=== PATIENT | female | born 1955 | race Caucasian/White ===

== ENCOUNTER → 2016-08-15 | Outpatient (CLI) | payer OTHER, BC | END | disposition home or self-care (01) | LOC: C.PATHSPEC 16:56 | PROVIDERS: ATTEND Dermatology | DX: C44.719 Basal cell carcinoma of skin of left lower limb, including hip (principal) ==

== ENCOUNTER → 2017-01-24 | Outpatient (CLI) | payer OTHER ==
--- NOTE | 2017-01-24 14:55 | MAMMOGRAPHY REPORT ---
UNILATERAL RIGHT DIGITAL DIAGNOSTIC MAMMOGRAM TOMOSYNTHESIS AND TARGETED RIGHT ULTRASOUND: 01/24/2017 CLINICAL HISTORY: Callback from screening mammogram for possible right breast architectural distortio n. TECHNIQUE: Breast tomosynthesis in addition to standard 2D mammography was performed. Spot compress ion right CC and MLO 2-D and tomosynthesis images were obtained. COMPARISON: Comparison is made to exams dated: 01/15/2017 mammogram, 12/12/2015 mammogram, 12/07/2014 mammogram, 12/21/2013 ultrasound, 12/21/2013 mammogram, and 12/04/2013 mammogram - [facility]. BREAST COMPOSITION: The tissue of the right breast is heterogeneously dense, which may obscure small masses. FINDINGS: The previously described possible architectural distortion seen within the right medial ashtyn ast on the cc view does not persist on the additional spot compression views. Normal fibroglandular tissue is seen in this region on the tomosynthesis images, without evidence of a suspicious mass or a rchitectural distortion noted. Targeted ultrasound was performed of the right medial breast in the region of the questionable distor tion seen on the screening mammogram. No suspicious masses or other suspicious sonographic abnormali ties are evident. Incidentally noted are multiple small anechoic benign cysts, including multiple sm all benign cysts in the right 6:00 breast as well as a small 3 mm anechoic benign cyst in the right 3 :00 breast. IMPRESSION: ACR BI-RADS CATEGORY 2: BENIGN, TARGETED ULTRASOUND ACR BI-RADS CATEGORY 2: BENIGN The questionable right breast architectural distortion does not persist on the additional views, with out corresponding suspicious sonographic abnormality evident. Findings are benign and compatible wit h normal overlapping fibroglandular tissue. There is no mammographic or targeted sonographic evidenc e of malignancy. A 1 year screening mammogram is recommended. The patient has been verbally notified of the results. Approximately 10% of breast cancers are not detected with mammography. A negative mammographic report should not delay biopsy if a clinically suggestive mass is present. Taylor Edwards M.D. /:01/24/2017 10:46:03 Regrader: Vicenta EASTON(Cody)(Curtis), [facility] letter sent: Normal 1/2 BI-RADS Code: ACR BI-RADS Category 2: Benign Ultrasound BI-RADS: ACR BI-RADS Category 2: Benign
== END | disposition home or self-care (01) ==
LOC: C.MAMM 10:11
PROVIDERS: ATTEND Family Medicine
DX: R92.8 Other abnormal and inconclusive findings on diagnostic imaging of breast (principal)